=== PATIENT | female | born 1950 | race Caucasian/White ===

== ENCOUNTER 2017-02-23 12:38 | Inpatient (IN) | payer OTHER, MEDICAID ==
[~2017-02-23] VITALS: Ht 162.6 cm; Wt 44.9 kg
[2017-02-23 12:48] VITALS: BP 145/94; PULSE 94; RESP 16; TEMP 96.1; O2SAT 97
[2017-02-23] MEDS ORDERED: NACL 0.9% 1,000 ML IV SCH (12:49)
--- NOTE | 2017-02-23 12:56 | NUR ---
Patient to ER bed 05 to gown for evaluation. Side rails up. Report given to CHAD Dutton.
[2017-02-23] MEDS ORDERED: NACL 0.9% 1,000 ML IV ONE (13:00)
--- NOTE | 2017-02-23 13:05 | NUR ---
DR. VELA AT BEDSIDE EXAMINING THE PT.
--- NOTE | 2017-02-23 13:10 | NUR ---
PT. 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
--- NOTE | 2017-02-23 13:20 | NUR ---
# 20 gauge angiocath placed to RAC. Use of asceptic technique. Opsite placed over site. Blood return noted. Blood for lab drawn from site. Flushed with 10 cc of normal saline. No evidence of infiltration noted. Patient tolerated well.
[2017-02-23 13:26] LABS: BASOPHILS % (AUTO) 0.5 % (0.0-2.0); EOSINOPHILS % (AUTO) 0.4 % (0.0-4.0); HEMATOCRIT 45.9 % (36-48); HEMOGLOBIN 15.5 g/dL (12.0-16.0); LYMPHOCYTES # (AUTO) 1.2 K/uL (1.0-5.5); LYMPHOCYTES % (AUTO) 12.6 % (20.5-51.5); MEAN CORPUSCULAR HEMOGLOBIN 30 pg (27-31); MEAN CORPUSCULAR HGB CONC 34 % (32-36); MEAN CORPUSCULAR VOLUME 89 fL (79.0-98.0); MONOCYTES # (AUTO) 0.2 K/uL (0.0-1.0); MONOCYTES % (AUTO) 2.5 % (1.7-9.3); NEUTROPHILS # (AUTO) 8.5 K/uL (1.8-7.7); PLATELET COUNT (AUTO) 325 K/uL (130-430); RED BLOOD CELL COUNT(AUTO) 5.16 MIL/uL (4.2-6.2); RED CELL DISTRIBUTION WIDTH 13.3 % (9.0-15.0); WHITE BLOOD COUNT (AUTO) 9.9 K/uL (4.8-10.8)
[2017-02-23 13:44] LABS: INR 0.9 (0.8-1.2)
[2017-02-23 13:50] LABS: CALCIUM 10.2 mg/dL (8.4-11.0); CREATININE 1.54 mg/dL (0.55-1.30)
[2017-02-23 13:51] LABS: ALBUMIN 3.6 g/dL (3.4-4.8); TOTAL BILIRUBIN 0.7 mg/dL (0.0-1.0)
--- NOTE | 2017-02-23 14:00 | NUR ---
PT. RESTING IV FLUIDS RUNNING IV INTACT NO INFILTRATION NOTED
[2017-02-23 14:10] LABS: BILIRUBIN,URINE NEGATIVE (NEGATIVE); CLARITY/URINE CLOUDY (CLEAR); COLOR,URINE YELLOW (YELLOW); GLUCOSE,URINE 3+ (NEGATIVE); KETONES,URINE TRACE (NEGATIVE); LEUKOCYTE ESTERASE ,URINE 1+ (NEGATIVE); NITRITE, URINE NEGATIVE (NEGATIVE); PH,URINE 5.5 (5.0-8.0); PROTEIN URINE NEGATIVE (NEGATIVE); UROBILINOGEN,URINE 0.2 (0.2-1.0)
[2017-02-23] MEDS ORDERED: INSULIN REGULAR, HUMAN 10 UNITS/0.1 ML INJ IVP ONE ×2 (14:30→14:45)
[2017-02-23 14:31] LABS: BLOOD, URINE TRACE (NEGATIVE)
[2017-02-23 14:36] LABS: BACTERIA,URINE MODERATE /HPF (None Seen); RBC,URINE 0-3 /HPF (0-3); WBC,URINE 20-50 /HPF (0-3)
[2017-02-23 14:37] LABS: YEAST,URINE Moderate /HPF (None Seen)
--- NOTE | 2017-02-23 14:57 | NUR ---
DR. FREY AT BEDSIDE EXAMINING THE PT. , SPEAKING TO THE PT. FOR PLAN OF CARE
[2017-02-23] MEDS ORDERED: cefTRIAXone 1 GM IVPB PREMIX 50 ML IV ONE (15:00)
[2017-02-23] MEDS ORDERED: DEXTROSE 50% JECT 50 ML DISP.SYRIN IVP PRN (15:00)
--- NOTE | 2017-02-23 15:30 | NUR ---
Patient will be admitted to care of DR. FREY. Admitted to MED SURG unit. Will go to room 135 Belongings list completed. Summary report printed. Report given to ARTIST'S MANAGER
[2017-02-23 15:33] VITALS: BP 176/88; PULSE 94; RESP 18; TEMP 96.9; O2SAT 99
--- NOTE | 2017-02-23 15:33 | NUR ---
ADMISSION NOTE Received patient from ER via edgar, received report from RN. Patient admitted with diagnosis of Hyerglycemia. Patient oriented to hospital routine, call light, toileting and safety-patient verbalized understanding.
[2017-02-23 15:45] VITALS: BP 176/88; PULSE 94; RESP 18; TEMP 96.9; O2SAT 94
--- NOTE | 2017-02-23 16:00 | NUR ---
CALLED ENDOCRINE CONSULT TO DR BULL, RE: HYPERGLYCEMIA. SPOKE TO GURU
[2017-02-23] MEDS: NACL 0.9% 1,000 ML IV SCH (16:05)
--- NOTE | 2017-02-23 16:28 | NUR ---
CALLED ATTENDING MD DR FREY RE: HTN. SPOKE TO PO
--- NOTE | 2017-02-23 16:39 | NUR ---
DR FREY PAGED REGARDING HIGH BLOOD PRESSURE AND BLOOD GLUCOSE OF 409 PER PROTOCOL, WILL FOLLOW UP.
--- NOTE | 2017-02-23 16:51 | NUR ---
DR AMIN CALL BACK ORDERED FOR CLONIDINE 0.1MG [id number] PRN FOR SYSTOLIC BP OVER 160, NOTIFIED OF BLOOD GLUCOSE 409 STATED GIVE THE INSULIN ORDERED AND MAKE SURE DR BULL SEE THE PATIENT FOR ENDOCRINE CONSULT.
[2017-02-23] MEDS ORDERED: cloNIDine HCL 0.1 MG TABLET PO PRN (17:00)
--- NOTE | 2017-02-23 17:06 | NUR ---
RN ROUNDS PATIENT RESTING IN BED, AWAKE, EDUCATED ON BLOOD PRESSURE MEDICATION AND POTENTIAL SIDE EFFECTS, PATIENT VERBALIZED UNDERSTANDING AND TOLERATED WELL, EDUCATED ON INSULIN SLIDING SCALE AND POTENTIAL SIDE EFFECTS, PATIENT VERBALIZED UNDERSTANDING AND GIVEN 12 UNITS OF REGULAR INSULIN AT THIS TIME, PATIENT WAS ASKING FOR JUICE EDUCATED THE PATIENT ON THE AFFECT OF SUGARS ON BLOOD SUGAR AND THAT HAVING JUICE IS NOT RECOMMENDED AT THIS TIME DUE TO THE PATIENT'S HIGH BLOOD GLUCOSE LEVEL, PATIENT VERBALIZED UNDERSTANDING AT THIS TIME, NO OTHER NEEDS AT THIS TIME, BED IN LOWEST POSITION, THREE SIDE RAILS UP, BED ALARM ON, CALL LIGHT IN THE PATIENT'S HAND, FALL AND ASPIRATION PRECAUTIONS IN PLACE.
[2017-02-23] MEDS: INSULIN REGULAR, HUMAN 100 UNITS/ML, 10 ML VIAL (novoLIN R) SUBCUT PRN (17:08)
--- NOTE | 2017-02-23 17:38 | NUR ---
PAGED DR BULL FOR ORDERS OR TO COME AND SEE THE PT TONITE
--- NOTE | 2017-02-23 17:42 | NUR ---
THE ENDOCRINOLOGY CONSULT DR BULL CALLED BACK AND SAID THAT HE CANNOT DO THE CONSULT FOR HE IS OUT OF TOWN. WILL INFORM ATTENDING MD DR FREY FOR ANOTHER ENDOCRINE CONSULT.
--- NOTE | 2017-02-23 18:39 | NUR ---
CLOSING NOTES PATIENT RESTING IN BED, EATING DINNER AT THIS TIME, ASPIRATION PRECAUTIONS IN PLACE, ALL NEEDS MET, BED IN LOWEST POSITION, THREE SIDE RAILS UP, BED ALARM ON, FALL PRECAUTIONS IN PLACE, CALL LIGHT NEXT TO THE PATIENT'S HAND, WILL ENDORSE REPORT TO NOC SHIFT NURSE.
--- NOTE | 2017-02-23 19:05 | NUR ---
OPENING NOTES RECEIVED REPORT AT BEDSIDE FROM DAY SHIFT NURSE. NO SIGNS OR SYMPTOMS OF DISTRESS NOTED. FALL PRECAUTIONS IN PLACE, CALL LIGHT WITHIN REACH. WILL CONTINUE TO MONITOR.
[2017-02-23 20:10] VITALS: BP 96/55; PULSE 80; RESP 20; TEMP 97.8; O2SAT 98
--- NOTE | 2017-02-23 21:00 | NUR ---
ROUNDS PATIENT IS SLEEPING COMFORTABLY IN SEMI-FOWLERS POSITION. VISIBLE RISE AND FALL OF CHEST NOTED. IV FLUIDS RUNNING. SKIN IS DRY AND COLD. NO SIGNS OR SYMPTOMS OF DISTRESS NOTED. FALL PRECAUTIONS IN PLACE, CALL LIGHT WITHIN REACH. WILL CONTINUE TO MONITOR.
--- NOTE | 2017-02-23 21:15 | NUR ---
DR. OVALLES OUT OF TOWN PER REPORT DR. OVALLES WILL BE COMING IN TO SEE PATIENT. READ NOTE FROM [employer] REGARDING BEING OUT OF TOWN AND NOT ABLE TO SEE PATIENT. WAITING CALL BACK FROM MD TO SEE IF HE WANTS TO CONSULT A DIFFERENT APICULTURIST.
--- NOTE | 2017-02-23 21:39 | NUR ---
Paged paged for Dr Mejia, dialed . s/w Jada.
--- NOTE | 2017-02-23 21:57 | NUR ---
SPOKE WITH DR. CASTILLO/NEW CONSULT MD AWARE DR. OVALLES OUT OF TOWN, NEW CONSULT ORDER FOR DR. ROCHA. ORDERS IN PLACE.
--- NOTE | 2017-02-23 21:59 | NUR ---
Consultation Paged Reason for consult: Hyperglycemia Was consult called: Yes Person who was notified: [facility] Consulting Physician: Haily Montiel Torpedo Worker Specialty: Endo Torpedo Worker
--- NOTE | 2017-02-23 23:51 | NUR ---
BLOOD SUGAR PATIENT'S BLOOD SUGAR WAS YARDER ENGINEER PER Q6 ORDER AT 2349 WITH A READING OF 84. NO INSULIN COVERAGE REQUIRED. PATIENT PROVIDED A JUICE BEFORE SETTLING BACK TO SLEEP TO AVOID BLOOD SUGAR DROPPING DURING THE NIGHT. PATIENT SHOWS NO SIGNS OR SYMPTOMS OF HYPOGLYCEMIA. BED IN LOWEST POSITION, BED ALARM ON, CALL LIGHT WITHIN REACH. WILL CONTINUE TO MONITOR FREQUENTLY.
[2017-02-24 00:19] VITALS: BP 118/65; PULSE 68; RESP 18; TEMP 97.8; O2SAT 97
--- NOTE | 2017-02-24 02:30 | NUR ---
ROUNDS PATIENT IS SLEEPING COMFORTABLY, VISIBLE RISE AND FALL OF CHEST NOTED. IV FLUIDS RUNNING. SKIN IS WARM AND DRY. NO SIGNS OR SYMPTOMS OF DISTRESS NOTED. BED IN LOWEST POSITION, BED ALARM ON, CALL LIGHT WITHIN REACH. WILL CONTINUE TO MONITOR.
[2017-02-24 04:15] VITALS: BP 104/70; PULSE 62; RESP 20; TEMP 97.9; O2SAT 98
[2017-02-24] MEDS: NACL 0.9% 1,000 ML IV SCH ×3 (04:22→23:51)
--- NOTE | 2017-02-24 04:24 | NUR ---
ROUNDS PATIENT RESTING COMFORTABLY. AWAKE AND ALERT, IN GOOD SPIRITS, SITTING IN SEMI-FOWLERS IN BED. SKIN WARM AND DRY. NO SIGNS OR SYMPTOMS OF HYPOGLYCEMIC DISTRESS NOTED. BED IN LOWEST POSITION, CALL LIGHT WITHIN REACH. WILL CONTINUE TO MONITOR.
[2017-02-24] MEDS: INSULIN REGULAR, HUMAN 100 UNITS/ML, 10 ML VIAL (novoLIN R) SUBCUT PRN ×2 (05:33→11:29)
--- NOTE | 2017-02-24 06:30 | NUR ---
CLOSING NOTES REPORT GIVEN AT BEDSIDE TO DAY SHIFT NURSE. PATIENT ALERT AND ORIENTED X4, SITTING UP, EATING BREAKFAST. FALL PRECAUTIONS IN PLACE. WILL ENDORSE CARE TO ONCOMING NURSE.
--- NOTE | 2017-02-24 07:52 | NUR ---
AM Rounds: Received pt sitting semi-fowlers in bed. No acute signs of distress noted at this time. IV intact to RUE with no redness or swelling noted to site. Call light in reach. Bed alarm on. Continue to monitor.
[2017-02-24 08:25] VITALS: BP 139/90; PULSE 98; RESP 16; TEMP 97.4; O2SAT 97
--- NOTE | 2017-02-24 08:58 | NUR ---
Nutrition Update Anthony Scale 16 noted. Pt admitted for hyperglycemia. Diet: [facility] BMI: 17.2 kg/m2 RD to follow per nutrition care standards.
--- NOTE | 2017-02-24 09:32 | NUR ---
RN Rounds: Pt resting comfortably in bed. No acute signs of distress noted at this time. IV intact and infusing fluids well to RUE with no redness or swelling noted to site. Call light in reach. Continue to monitor.
--- NOTE | 2017-02-24 11:29 | NUR ---
CALLED ENDOCRINE CONSULT DR ROCHA REMIND HIM OF THIS CONSULT. SPOKE TO GURU
--- NOTE | 2017-02-24 11:36 | NUR ---
Rounds: Blood sugar checked and coverage given. Assist patient up to bathroom. Pt tolerates activity well. Pt assisted back to bed. Call light in reach. Fall precautions in place. Continue to monitor.
[2017-02-24 12:19] VITALS: BP 154/96; PULSE 91; RESP 17; TEMP 97.6; O2SAT 97
[2017-02-24 12:41] LABS: CALCIUM 8.3 mg/dL (8.4-11.0); CREATININE 0.86 mg/dL (0.55-1.30); POTASSIUM 3.5 mmol/L (3.5-5.1)
--- NOTE | 2017-02-24 13:41 | NUR ---
Rounds: Pt sitting semi-fowlers in bed and watching TV. No acute signs of distress noted at this time. Call light in reach. Bed alarm on. Continue to monitor pt closely.
[2017-02-24 15:07] VITALS: Ht 162.6 cm; Wt 44.9 kg
--- NOTE | 2017-02-24 15:19 | NUR ---
Rounds: Pt sitting semi-fowlers in bed. No acute signs of distress noted. IV fluids infusing well to right forearm. Call light in reach. Continue to monitor.
[2017-02-24 16:00] VITALS: BP 149/89; PULSE 88; RESP 17; TEMP 98; O2SAT 98
[2017-02-24] MEDS: INSULIN ASPART 100 UNITS/ML, 10 ML VIAL (NovoLOG) SUBCUT PRN ×2 (17:27→22:11)
--- NOTE | 2017-02-24 17:28 | NUR ---
Rounds: Blood sugar checked and coverage given. Pt tolerates well at this time. IV fluids infusing well to RUE with no redness or swelling noted to site. Call light in reach. Continue to monitor.
--- NOTE | 2017-02-24 18:50 | NUR ---
Closing Note: Pt sitting up at bedside. No acute signs of distress noted. IV intact to RUE with no redness or swelling noted to site. Pt denies pain. Family at bedside. No acute signs of hypo or hyperglycemia noted. Pt educated on signs and symptoms of hypoglycemia including cold, clammy, visual changes, and hunger. Pt verbalizes understanding. Call light in reach. Endorse plan of care to NOC RN.
[2017-02-24 20:10] VITALS: BP 139/80; PULSE 86; RESP 18; TEMP 98.9; O2SAT 97
--- NOTE | 2017-02-24 22:18 | NUR ---
blood sugar fingerstick checked = 156 mg/dL. no s/s of hypo/hyperglycemia. 2 units novolog insulin given as ordered for coverage.
--- NOTE | 2017-02-24 23:17 | NUR ---
Rounds Sleeping quietly, easily aroused. No c/o pain or discomfort. Bed alarm on, call light within reach.
[2017-02-25 00:43] VITALS: BP 138/81; PULSE 81; RESP 20; TEMP 98.1; O2SAT 100
--- NOTE | 2017-02-25 03:12 | NUR ---
Rounds Sleeping, no apparent distress. Easily aroused. No c/o pain or discomfort. Call light within reach. Bed alarm on.
[2017-02-25 05:47] VITALS: BP 140/78; PULSE 65; RESP 18; TEMP 98.6; O2SAT 93
--- NOTE | 2017-02-25 06:34 | NUR ---
blood sugar fingerstick checked = 100 mg/dL. No s/s of hypo/hyperglycemia.
--- NOTE | 2017-02-25 07:00 | NUR ---
Closing note Sleeping quietly, easily aroused. No c/o pain or discomfort. All needs attended to. Call light within reach. bed alarm on. Endorsed care to CHAD Tim via SB[employer] method.
[2017-02-25 07:39] LABS: CALCIUM 8.2 mg/dL (8.4-11.0); CREATININE 0.63 mg/dL (0.55-1.30); POTASSIUM 3.9 mmol/L (3.5-5.1); THYROID STIMULATING HORMONE 0.64 uIu/mL (0.34-4.82)
[2017-02-25] MEDS: NACL 0.9% 1,000 ML IV SCH (07:45)
[2017-02-25 08:00] VITALS: BP 155/97; PULSE 99; RESP 18; TEMP 98.6; O2SAT 99
--- NOTE | 2017-02-25 08:00 | NUR ---
NOTE PT DROWSY AND SLEEPY, BUT EASILY AROUSABLE. NO SOB/RESP DISTRESS OR PAIN/DISCOMFORT. IV IN RIGHT HAND INTACT AND PATENT, AND IVF'S INFUSING WELL. NO NEEDS NOTED. CALL LIGHT WITHIN REACH.
[2017-02-25] MEDS: INSULIN ASPART 100 UNITS/ML, 10 ML VIAL (NovoLOG) SUBCUT PRN (11:48)
--- NOTE | 2017-02-25 12:00 | NUR ---
NOTE DR CASTILLO CAME TO SEE PT. QUESTIONS/CONCERNS WERE ANSWERED AT THIS TIME. IVPB ANTIBIOTICS ONE TIME GIVEN. IVF'S WERE SALINE LOCKED. AT THIS TIME. NO NEEDS WERE NOTED. PT RESTING IN BED DOING HER CROSSWORD PUZZLE. CALL LIGHT WITHIN REACH.
[2017-02-25 12:13] VITALS: BP 171/99; PULSE 98; RESP 17; TEMP 98; O2SAT 98
[2017-02-25 12:22] VITALS: O2SAT 96
--- NOTE | 2017-02-25 14:00 | NUR ---
NOTE PT'S IV WAS DC'D. CATH INTACT. NO SWELLING/REDNESS/BLEEDING/DRAINAGE OR TENDERNESS NOTED AT THIS TIME. PT WAS GIVEN DISCHARGE INSTRUCTIONS AND PRESCRIPTION. QUESTIONS/CONCERNS WERE ANSWERED. PT DRESSED IN STREET CLOTHES AND PT AND HER SON PACKED ALL BELONGINGS. PT AND HER SON CHECKED SIDE TABLE AND DRAWERS FOR BELONGINGS. PT OFF THE FLOOR VIA WHEELCHAIR WITH ALL HER BELONGINGS. NO SOB/RESP DISTRESS OR PAIN/DISCOMFORT NOTED AT THIS TIME. PT STABLE.
--- NOTE | 2017-03-01 10:45 | NUR ---
Discharge Follow Up Phone Call Pari [employer] T[employer] Cashier phoned patient, , on 02/27/17, 02/28/17 and 03/01/17 and left voicemail messaged with offer of assistance and Social Service contact information. No further calls will be attempted. Pari [employer] T[employer] Cashier will remain available.
--- NOTE | 2017-03-07 12:09 | NUR ---
Discharge Follow Up Phone Call: SUPER[employer]OR [employer] received a call from pt ([phone]). Pt states that she is doing well; pt's prescriptions have been filled; there are no questions regarding discharge or medication instructions; pt has already attended PCP follow up appointment and has another appointment scheduled for 03/08/17; pt is checking her blood sugar as directed by PCP and she has a two month supply of insulin. Pt did not express any other needs or concerns and denied the need for additional follow up at this time. No further follow up phone calls required at this time.
== END 2017-02-25 14:05 | disposition home or self-care (01) | DRG 682 ==
LOC: SED 12:38 → SMU 15:16
PROVIDERS: ADMIT Internal Medicine Hospice and Palliative Medicine; ATTEND Internal Medicine Hospice and Palliative Medicine
DX: N17.9 Acute kidney failure, unspecified (principal); G93.41 Metabolic encephalopathy; N39.0 Urinary tract infection, site not specified; E11.65 Type 2 diabetes mellitus with hyperglycemia; I10 Essential (primary) hypertension; E86.0 Dehydration; Z98.49 Cataract extraction status, unspecified eye
CPT/HCPCS: 36415; 80048; 80053; 81000-TC; 82962; 83036; 83605; 84443-TC; 84484; 85025; 85610-TC; 85730-TC; 87040-TC; 87086; 93005; 96361; 96365; 96375; 99285; J0696; J1815; J7030; J7060